=== PATIENT | male | born 1995 | race Caucasian/White ===

== ENCOUNTER 2019-02-09 07:30 | Emergency (ER) | payer OTHER ==
[~2019-02-09] VITALS: Ht 170.2 cm; Wt 74.8 kg
[2019-02-09] MEDS ORDERED: IV NORMAL SALINE 1000 ML BAG IV ONE (07:45)
[2019-02-09] MEDS ORDERED: KETOROLAC TROMETHAMINE 15 MG INJ IV ONE (07:45)
[2019-02-09] MEDS ORDERED: ONDANSETRON 4 MG/2 ML VIAL IV ONE (07:45)
[2019-02-09] MEDS ORDERED: KETOROLAC TROMETHAMINE 30 MG INJ ONE ×2 (07:48→08:44)
[2019-02-09] MEDS ORDERED: ONDANSETRON 4 MG/2 ML VIAL ONE (07:48)
[2019-02-09 07:59] LABS: BASOPHILS % (AUTO) 0.3 % (0.0-2.0); EOSINOPHILS % (AUTO) 0.1 % (0.0-7.0); HEMATOCRIT 40.3 % (36.7-47.1); HEMOGLOBIN 14.2 g/dL (12.5-16.3); LYMPHOCYTES # (AUTO) 0.5 K/uL (20.0-40.0); LYMPHOCYTES % (AUTO) 5.1 % (20.5-51.5); MEAN CORPUSCULAR HEMOGLOBIN 31.4 uug (23.8-33.4); MEAN CORPUSCULAR HGB CONC 35 g/dL (32.5-36.3); MEAN CORPUSCULAR VOLUME 89.1 fL (73.0-96.2); MONOCYTES # (AUTO) 0.4 K/uL (2.0-10.0); MONOCYTES % (AUTO) 4.5 % (0.0-11.0); NEUTROPHILS # (AUTO) 8.4 K/uL (1.8-8.9); PLATELET COUNT (AUTO) 197 K/uL (152-348); RED BLOOD CELL COUNT(AUTO) 4.52 MIL/uL (4.06-5.63); WHITE BLOOD COUNT (AUTO) 9.3 K/uL (3.6-10.2)
[2019-02-09 08:06] LABS: CREATININE 1.1 mg/dL (0.6-1.3)
[2019-02-09 08:12] LABS: BILIRUBIN,DIRECT 0.3 mg/dL (0.0-0.2); BILIRUBIN,TOTAL 1.2 mg/dL (0.2-1.0); TOTAL PROTEIN, SERUM 7.1 g/dL (6.4-8.2)
[2019-02-09] MEDS ORDERED: MORPHINE SULFATE 4 MG/1 ML DISP.SYRIN ONE (08:44)
[2019-02-09] MEDS ORDERED: KETOROLAC TROMETHAMINE 30 MG INJ IVP ONE (08:45)
[2019-02-09] MEDS ORDERED: MORPHINE SULFATE 4 MG/1 ML DISP.SYRIN IV ONE (08:45)
[2019-02-09 08:56] LABS: *BILIRUBIN,URIN NEGATIVE (NEGATIVE); *BLOOD, URINE 3+ (NEGATIVE); *CLARITY,URINE CLOUDY (CLEAR); *COLOR,URINE YELLOW (YELLOW); *KETONES,URINE NEGATIVE (NEGATIVE); *UROBILINOGEN,URINE 0.2 E.U./dl (NORMAL); LEUKOCYTE ESTERASE ,URINE NEGATIVE (NEGATIVE); NITRITE, URINE NEGATIVE (NEGATIVE); PH,URINE 6.5 (5.0-8.0); UGLUCOSE NEGATIVE (NEGATIVE)
[2019-02-09 09:04] LABS: MUCUS,URINE FEW /LPF (0-FEW); SQUAMOUS EPITHELIAL CELL,UR FEW /HPF (NONE SEEN)
--- NOTE | 2019-02-09 09:04 | NUR ---
Patient is resting comfortably in bed with eyes closed. PATIENT IS PAIN FREE AT THIS TIME.
[2019-02-09 09:05] LABS: RBC,URINE 80-100 /HPF (0-3); WBC,URINE 0-3 /HPF (0-3)
[2019-02-09 09:06] LABS: BACTERIA,URINE NONE SEEN /HPF (NONE SEEN)
--- NOTE | 2019-02-09 09:14 | NUR ---
Patient says that he has a ride home & someone will be driving for him.
--- NOTE | 2019-02-09 09:45 | NUR ---
Copies of all the diagnostic tests results were provided to patient. Patient is asking a doctor's note re: WORK NOTE (to keep hydrating with fluids, water preferred)
--- NOTE | 2019-02-09 09:49 | NUR ---
IV removed. Catheter intact and site benign. Pressure and 4x4 gauze applied to site. No bleeding noted. Patient discharged to home in stable conditon. Written and verbal after care instructions given to patient. Patient verbalizes understanding of instructions.
== END 2019-02-09 10:08 | disposition home or self-care (01) ==
LOC: ER 07:30
DX: N20.0 Calculus of kidney (principal)
CPT/HCPCS: 36415; 74176; 80048; 80076; 81001; 85025; 96374; 96375; 96376; 99284; J1885 ×2; J2270; J2405; A4663; J7030

== ENCOUNTER 2019-03-01 06:30 | Emergency (ER) | payer OTHER ==
[~2019-03-01] VITALS: Ht 175.3 cm; Wt 77.1 kg
--- NOTE | 2019-03-01 06:39 | NUR ---
Dr. Vance at bedside for MSE.
[2019-03-01] MEDS ORDERED: MORPHINE SULFATE 2 MG/1 ML DISP.SYRIN IV ONE (06:45)
[2019-03-01] MEDS ORDERED: ONDANSETRON 4 MG/2 ML VIAL IV ONE (06:45)
[2019-03-01] MEDS ORDERED: IV NORMAL SALINE 1000 ML BAG IV ONE ×2 (06:45→07:30)
[2019-03-01] MEDS ORDERED: KETOROLAC TROMETHAMINE 15 MG INJ IV ONE (06:45)
[2019-03-01] MEDS ORDERED: MORPHINE SULFATE 4 MG/1 ML DISP.SYRIN ONE (06:47)
[2019-03-01] MEDS ORDERED: KETOROLAC TROMETHAMINE 30 MG INJ ONE (06:47)
[2019-03-01] MEDS ORDERED: ONDANSETRON 4 MG/2 ML VIAL ONE (06:47)
[2019-03-01] MEDS ORDERED: MORPHINE SULFATE 2 MG/1 ML DISP.SYRIN ONE (06:47)
--- NOTE | 2019-03-01 06:55 | NUR ---
Report given to Ralf parmar.
[2019-03-01 07:08] LABS: BASOPHILS # (AUTO) 0.1 K/uL (0.0-8.0); BASOPHILS % (AUTO) 0.4 % (0.0-2.0); EOSINOPHILS # (AUTO) 0.1 K/uL (0.0-0.7); HEMATOCRIT 39.4 % (36.7-47.1); HEMOGLOBIN 13.9 g/dL (12.5-16.3); LYMPHOCYTES % (AUTO) 25.2 % (20.5-51.5); MEAN CORPUSCULAR HEMOGLOBIN 30.8 uug (23.8-33.4); MEAN CORPUSCULAR HGB CONC 35 g/dL (32.5-36.3); MEAN CORPUSCULAR VOLUME 87.4 fL (73.0-96.2); MONOCYTES # (AUTO) 0.8 K/uL (2.0-10.0); MONOCYTES % (AUTO) 6.3 % (0.0-11.0); NEUTROPHILS % (AUTO) 67.1 % (38.5-71.5); PLATELET COUNT (AUTO) 226 K/uL (152-348); RED BLOOD CELL COUNT(AUTO) 4.51 MIL/uL (4.06-5.63)
[2019-03-01 07:12] LABS: CREATININE 1.1 mg/dL (0.6-1.3); POTASSIUM 3.4 mmol/L (3.5-5.1)
[2019-03-01] MEDS ORDERED: HYDROMORPHONE 1 MG/1 ML DISP.SYRIN ONE ×2 (07:22→08:34)
[2019-03-01] MEDS ORDERED: HYDROMORPHONE 1 MG/1 ML DISP.SYRIN IV ONE ×2 (07:30→08:45)
[2019-03-01] MEDS ORDERED: KETOROLAC TROMETHAMINE 15 MG INJ IVP ONE (07:45)
[2019-03-01] MEDS ORDERED: KETOROLAC TROMETHAMINE 15 MG INJ ONE (07:47)
[2019-03-01 07:52] LABS: *BILIRUBIN,URIN NEGATIVE (NEGATIVE); *BLOOD, URINE 3+ (NEGATIVE); *CLARITY,URINE TURBID (CLEAR); *COLOR,URINE YELLOW (YELLOW); *KETONES,URINE TRACE (NEGATIVE); *UROBILINOGEN,URINE 0.2 E.U./dl (NORMAL); LEUKOCYTE ESTERASE ,URINE NEGATIVE (NEGATIVE); NITRITE, URINE NEGATIVE (NEGATIVE); PH,URINE 5.5 (5.0-8.0); UGLUCOSE NEGATIVE (NEGATIVE)
[2019-03-01 07:57] LABS: BACTERIA,URINE FEW /HPF (NONE SEEN); RBC,URINE 80-100 /HPF (0-3); SQUAMOUS EPITHELIAL CELL,UR FEW /HPF (NONE SEEN)
[2019-03-01] MEDS ORDERED: TAMSULOSIN HCL 0.4 MG CAP.SR.24H PO ONE (08:15)
[2019-03-01] MEDS ORDERED: TAMSULOSIN HCL 0.4 MG CAP.SR.24H ONE (08:35)
--- NOTE | 2019-03-01 09:15 | NUR ---
PT WAS D/C'd TO HOME AFTER DR PARTIDA RE-EVALUATION. D/C INSTRUCTIONS GIVEN TO THE PT.
[2019-03-01 09:16] VITALS: BP_DIAS 77
== END 2019-03-01 09:17 | disposition home or self-care (01) ==
LOC: ER 06:32
DX: N20.0 Calculus of kidney (principal)
CPT/HCPCS: 36415; 76770; 80048; 81001; 85025; 96374; 96375; 96376; 99284; J1170 ×2; J1885 ×2; J2270 ×2; J2405; A4663; J7030

== ENCOUNTER 2019-03-06 05:11 | Emergency (ER) | payer OTHER ==
[~2019-03-06] VITALS: Ht 170.2 cm; Wt 72.6 kg
[2019-03-06] MEDS: IV NORMAL SALINE 500 ML BAG IV ONE (05:34)
[2019-03-06] MEDS: KETOROLAC TROMETHAMINE 30 MG INJ IVP ONE (05:36)
[2019-03-06] MEDS ORDERED: KETOROLAC TROMETHAMINE 30 MG INJ ONE (05:37)
[2019-03-06 05:49] LABS: *BILIRUBIN,URIN 1+ (NEGATIVE); *BLOOD, URINE 2+ (NEGATIVE); *CLARITY,URINE CLEAR (CLEAR); *COLOR,URINE YELLOW (YELLOW); *KETONES,URINE NEGATIVE (NEGATIVE); *UROBILINOGEN,URINE 0.2 E.U./dl (NORMAL); LEUKOCYTE ESTERASE ,URINE NEGATIVE (NEGATIVE); NITRITE, URINE NEGATIVE (NEGATIVE); PH,URINE 5.5 (5.0-8.0); UGLUCOSE NEGATIVE (NEGATIVE)
[2019-03-06 05:51] LABS: BACTERIA,URINE NONE SEEN /HPF (NONE SEEN); SQUAMOUS EPITHELIAL CELL,UR FEW /HPF (NONE SEEN)
[2019-03-06] MEDS ORDERED: ONDANSETRON 4 MG/2 ML VIAL ONE (06:03)
[2019-03-06] MEDS ORDERED: MORPHINE SULFATE 4 MG/1 ML DISP.SYRIN ONE (06:03)
[2019-03-06] MEDS: ONDANSETRON 4 MG/2 ML VIAL IV ONE (06:09)
[2019-03-06] MEDS: MORPHINE SULFATE 4 MG/1 ML DISP.SYRIN IV ONE (06:09)
--- NOTE | 2019-03-06 06:26 | NUR ---
Patient discharged to home in stable conditon. Written and verbal after care instructions given. Patient verbalizes understanding of instructions. Ambulated from ER with stable gait. All belongings with patient. patient will be driven home by significant other. Peripheral IV removed prior to d/c.
[2019-03-06 06:28] VITALS: BP 121/80
== END 2019-03-06 06:29 | disposition home or self-care (01) ==
LOC: ER 05:13
DX: N20.0 Calculus of kidney (principal)
CPT/HCPCS: 81001; 96374; 96375; 99283; J1885; J2270; J2405; A4663; J7030

== ENCOUNTER 2019-03-29 18:26 | Emergency (ER) | payer OTHER ==
[~2019-03-29] VITALS: Ht 170.2 cm; Wt 72.6 kg
[2019-03-29] MEDS ORDERED: ACET-2154 PO (18:37)
[2019-03-29 18:45] LABS: *BILIRUBIN,URIN NEGATIVE (NEGATIVE); *COLOR,URINE DARK YELLOW (YELLOW); *KETONES,URINE TRACE (NEGATIVE); LEUKOCYTE ESTERASE ,URINE NEGATIVE (NEGATIVE); NITRITE, URINE NEGATIVE (NEGATIVE); PH,URINE 6.5 (5.0-8.0); UGLUCOSE NEGATIVE (NEGATIVE)
[2019-03-29 18:53] LABS: *BLOOD, URINE TRACE (NEGATIVE); *CLARITY,URINE SLIGHTLY HAZY (CLEAR)
[2019-03-29 18:54] LABS: MUCUS,URINE MANY /LPF (0-FEW); WBC,URINE 0-3 /HPF (0-3)
[2019-03-29] MEDS ORDERED: KETOROLAC TROMETHAMINE 15 MG INJ IV ONE (19:00)
[2019-03-29] MEDS ORDERED: ONDANSETRON 4 MG/2 ML VIAL IV ONE (19:00)
[2019-03-29] MEDS ORDERED: IV NORMAL SALINE 1000 ML BAG IV ONE (19:00)
[2019-03-29 19:12] LABS: BASOPHILS % (AUTO) 0.4 % (0.0-2.0); CREATININE 1.5 mg/dL (0.6-1.3); EOSINOPHILS % (AUTO) 0.1 % (0.0-7.0); HEMATOCRIT 33.8 % (36.7-47.1); HEMOGLOBIN 11.9 g/dL (12.5-16.3); LYMPHOCYTES # (AUTO) 1.3 K/uL (20.0-40.0); LYMPHOCYTES % (AUTO) 21.9 % (20.5-51.5); MEAN CORPUSCULAR HEMOGLOBIN 30.7 uug (23.8-33.4); MEAN CORPUSCULAR HGB CONC 35 g/dL (32.5-36.3); MEAN CORPUSCULAR VOLUME 87.4 fL (73.0-96.2); MONOCYTES # (AUTO) 0.4 K/uL (2.0-10.0); MONOCYTES % (AUTO) 7.5 % (0.0-11.0); NEUTROPHILS # (AUTO) 4.2 K/uL (1.8-8.9); NEUTROPHILS % (AUTO) 70.1 % (38.5-71.5); PLATELET COUNT (AUTO) 206 K/uL (152-348); POTASSIUM 3.8 mmol/L (3.5-5.1); RED BLOOD CELL COUNT(AUTO) 3.86 MIL/uL (4.06-5.63); WHITE BLOOD COUNT (AUTO) 5.9 K/uL (3.6-10.2)
--- NOTE | 2019-03-29 19:30 | NUR ---
Received report from Faviola QUEVEDO assumed care of pt., pt. ambulated into ED w/ L side flank pain /10 x 3 days, hx of kidney stones, A/Ox4, denies SOB/CP/GILLIS/F/C, RR even and unlabored, speaks in clear and complete sentences, VSS
[2019-03-29] MEDS ORDERED: KETOROLAC TROMETHAMINE 30 MG INJ ONE (19:34)
[2019-03-29] MEDS ORDERED: ONDANSETRON 4 MG/2 ML VIAL ONE (19:34)
--- NOTE | 2019-03-29 20:39 | NUR ---
Patient discharged to home in stable conditon. Written and verbal after care instructions given. Patient verbalizes understanding of instructions. Pt. d/c w/ prescription per MD order, d/c papers signed, all belongings w/ pt., ID band/IV removed, ambulated off unit w/ steady gait, NAD
== END 2019-03-29 20:40 | disposition home or self-care (01) ==
LOC: ER 18:27
DX: R10.9 Unspecified abdominal pain (principal); R11.0 Nausea; R39.15 Urgency of urination; Z79.899 Other long term (current) drug therapy
CPT/HCPCS: 36415; 80048; 81001; 85025; 96374; 96375; 99283; J1885; J2405; A4663; J7030